=== PATIENT | female | born 1980 ===

== ENCOUNTER 2018-03-25 09:46 | Emergency (ER) | payer MEDICAID ==
[2018-03-25 09:59] VITALS: RESP 19
[2018-03-25 10:19] LABS: URINE BILIRUBIN NEGATIVE (NEGATIVE); URINE BLOOD MODERATE (NEGATIVE); URINE GLUCOSE (UA) 100 mg/dL (NEGATIVE); URINE LEUKOCYTE ESTERASE MODERATE Leu/uL (NEGATIVE); URINE PROTEIN >=300 mg/dL (<30 mg/dL)
[2018-03-25 10:21] LABS: URINE APPEARANCE SLIGHT-CLOUDY (CLEAR); URINE COLOR DARK YELLOW (YELLOW)
[2018-03-25 10:25] LABS: URINE RBC 0 - 2 /hpf (0-2); URINE WBC 15 - 20 /hpf (0-6)
--- NOTE | 2018-03-25 10:32 | ED PDOC ---
Arrival/HPI - General Chief Complaint: Female Genitourinary Time Seen by Provider: 03/25/18 10:03 Historian: Patient - History of Present Illness Narrative History of Present Illness (Text): 03/25/18 10:29 38yr old female presents today with a 3 day history of dysuria and urinary urgency. Patient states she has had a history of urinary tract infections in the past. Patient states symptoms are similar. Patient denies abdominal pain. No nausea vomiting diarrhea or constipation. Patient denies chest pain or shortness of breath. Patient denies any back pain. No fevers or chills. No vaginal bleeding or vaginal discharge Time/Duration: Other (3 days) Symptom Onset: Gradual Quality: Burning Severity Level: Mild Past Medical History - Provider Review Nursing Documentation Reviewed: Yes - Travel History Have you recently traveled outside [place] w/in the past 3 mons?: No - Infectious Disease Hx of Infectious Diseases: None - Tetanus Immunization Tetanus Immunization: Unknown - Genitourinary/Gynecological Hx Urinary Tract Infection: Yes - Psychiatric Hx Substance Use: No - Surgical History Hx Section: Yes (02/10/18) Hx Tubal Ligation: Yes - Anesthesia Hx Anesthesia: Yes Hx Anesthesia Reactions: No Hx Malignant Hyperthermia: No Family/Social History - Physician Review Nursing Documentation Reviewed: Yes Family/Social History: Unknown Family HX Smoking Status: Never Smoked Hx Alcohol Use: No Hx Substance Use: No Allergies/Home Meds Allergies/Adverse Reactions: Allergies No Known Allergies Allergy (Verified 03/25/18 09:59) Review of Systems - Review of Systems Constitutional: absent: Fatigue, Fevers Respiratory: absent: SOB, Cough Cardiovascular: absent: Chest Pain, Palpitations Gastrointestinal: absent: Abdominal Pain, Nausea, Vomiting Genitourinary Female: Dysuria, Frequency, Other (Urinary urgency). absent: Hematuria, Urine Output Changes, Vaginal Bleeding, Vaginal Discharge Musculoskeletal: absent: Arthralgias, Back Pain Skin: absent: Rash, Pruritis Neurological: absent: Headache, Dizziness Psychiatric: absent: Anxiety, Depression Physical Exam Vital Signs Reviewed: Yes Vital Signs Temp Pulse Resp BP Pulse Ox 03/25/18 09:55 97.9 F 72 19 122/66 98 Temperature: Afebrile Blood Pressure: Normal Pulse: Regular Respiratory Rate: Normal Appearance: Positive for: Well-Appearing, Non-Toxic, Comfortable Pain Distress: None Mental Status: Positive for: Alert and Oriented X 3 - Systems Exam Head: Present: Atraumatic Mouth: Present: Moist Mucous Membranes Neck: Present: Normal Range of Motion Respiratory/Chest: Present: Clear to Auscultation, Good Air Exchange. No: Respiratory Distress, Accessory Muscle Use Cardiovascular: Present: Regular Rate and Rhythm, Normal S1, S2. No: Murmurs Abdomen: No: Tenderness, Distention, Peritoneal Signs, Rebound, Guarding Back: Present: Normal Inspection. No: CVA Tenderness, Midline Tenderness, Paraspinal Tenderness Neurological: Present: GCS=15, Speech Normal, Gait Normal Skin: Present: Warm, Dry, Normal Color. No: Rashes Psychiatric: Present: Alert, Oriented x 3 Medical Decision Making ED Course and Treatment: 03/25/18 10:44 Patient is nontoxic well-appearing in no distress with stable vital signs keflex po Urinalysis: + leukocytes, + wbcs Urine culture: pending advised follow up with the primary care physician within the next 2 days. advised immediate return if symptoms worsen,persist or if new symptoms develop. Patient verbalizes understanding of discharge instructions and need for immediate followup. all aspects of this case were discussed the attending of record. Impression: Urinary tract infection Keflex 1 capsule twice daily times x 7 days Followup with primary care physician within the next 2 days Return if symptoms worsen persist or if new symptoms develop; high fevers, back pain, dizziness, abdominal pain, nausea/vomiting or if any other concerning symptoms develop. - Lab Interpretations Lab Results: Lab Results 03/25/18 10:00: Urine Color Dark yellow, Urine Appearance Slight-cloudy, Urine pH 6.0, Ur Specific [place] >= 1.030, Urine Protein >=300 H, Urine Glucose (UA) 100 H, Urine Ketones Negative, Urine Blood Moderate H, Urine Nitrate Positive H , Urine Bilirubin Negative, Urine Urobilinogen 4.0 H, Ur Leukocyte Esterase Moderate H, Urine RBC 0 - 2, Urine WBC 15 - 20, Ur Epithelial Cells 1 - 3 Disposition/Present on Arrival - Present on Arrival Any Indicators Present on Arrival: No History of DVT/PE: No History of Uncontrolled Diabetes: No Urinary Catheter: No History of Decub. Ulcer: No History Surgical Site Infection Following: None - Disposition Have Diagnosis and Disposition been Completed?: Yes Diagnosis: Urinary tract infection Disposition: HOME/ ROUTINE Disposition Time: 10:48 Patient Plan: Discharge Condition: GOOD Discharge Instructions (ExitCare): Urinary Tract Infections in Adults Additional Instructions: Keflex 1 capsule twice daily times x 7 days Followup with primary care physician within the next 2 days Return if symptoms worsen persist or if new symptoms develop; high fevers, back pain, dizziness, abdominal pain, nausea/vomiting or if any other concerning symptoms develop. Prescriptions: Cephalexin [Keflex] 500 mg PO BID #14 capsule Referrals: Tianna Najera MD [Staff Provider] - Follow up with primary Javier Chatterjee MD [Staff Provider] - Follow up with primary Forms: [employer] (Armenian)
[2018-03-25 10:50] VITALS: BP 119/71
[2018-03-25 11:08] VITALS: PULSE 75; TEMP 98; O2SAT 100
== END 2018-03-25 11:08 | disposition home or self-care (01) ==
LOC: ED 09:46
DX: N39.0 Urinary tract infection, site not specified (principal)